=== PATIENT | female | born 1980 | race Caucasian/White ===

== ENCOUNTER 2021-08-25 14:26 | Observation (INO) | payer MEDICARE, MEDICAID, SELFPAY ==
[2021-08-25 14:41] VITALS: BMI 33.5
[2021-08-25 15:13] VITALS: BP 110/80; PULSE 88; RESP 16; TEMP 37.1; O2SAT 98
[2021-08-25] MEDS: nicotine 2 mg Gum BUCCAL ×2 (20:25→22:38)
[2021-08-25] MEDS: CLONazepam 1 mg Tablet PO (21:14)
[2021-08-25] MEDS: quetiapine 25 mg Tablet 50 MG PO (21:14)
[2021-08-25 22:00] VITALS: RESP 18
[2021-08-26] MEDS: acetaminophen 325 mg Tablet 650 MG PO (00:57)
[2021-08-26 06:00] VITALS: RESP 18
--- NOTE | 2021-08-26 08:22 | P.NPUHP_ITS ---
Providers/Chief Complaint Admitting Physician: Gonzalo Romero MD Chief Complaint: psychosis HPI NPU History of Present Illness Marianela Rosenberg is a 40 year old female admitted from the emergency department at [facility] with the following behavioral health assessment. Behavioral health assessment at [facility]: Narrative summary: Precipitating events within the past 72 hours leading to presentation to the hospital: Patient is a 23-year-old female who presented to [facility] emergency department via EMS with a chief complaint of being pissed that I was discharged and treated like shit by the [employer] and I am going to slit my wrist if I do not get some meds. Patient reports she was discharged from the facility and [employer] 3 days ago and they kept her meds from home, stabilized her and kicked her out without any prescriptions for medications. Patient endorses a current diagnosis of depression, merle, psychosis and anxiety including low mood, decreased energy, poor self-care, crying, elevated mood, auditory hallucinations, and panic attacks. Patient reports having migraine due to her TBI and her brain is swelling and going to pop out of her head. Patient reports when she was discharged she felt normal, however she did not have prescriptions for medications she was on and did not want to remain on the lithium and stopped taking it. Initially patient states that she was going to cut her wrist if she did not get her medication. Then states that she was not suicidal and did not have a plan. When asked about the statement to cut her risk patient stated I wish I had the guts to do it, maybe I could walk out into traffic. I attempted suicide 1 time and was in a coma for weeks. God will not let me . Patient is requesting inpatient admission to get on medication. Case consultation with psychiatric advance nurse practitioner with the recommendation of admitting to behavioral health. Emergency department attending at concurs with the plan. When I attempted to interview her she said she only wanted out of this place. She said that she just threatened suicide yesterday in order to get medication. I tried to ask her about symptoms and she became belligerent. She is said [facility] . She would not cooperate with the evaluation. She denied depression. She denied that she had any suicidal ideation recently. She said that she moved here from [place] about 4 months ago. She has been trying to get an outpatient psychiatric visit for the last 4 months but she says that she still does not have one. Meds NPU Home Medications Medication Instructions Recorded Confirmed Last Taken Type clonazepam 1 mg PO TID 08/25/21 08/25/21 08/24/21 History lithium carbonate 300 mg PO DAILY 08/25/21 08/25/21 08/24/21 History quetiapine 50 mg PO BEDTIME 08/25/21 08/25/21 08/24/21 History Allergies Allergy/AdvReac Type Severity Reaction Status Date / Time adhesive tape Allergy Unknown Verified 08/25/21 15:08 amoxicillin Allergy Unknown Verified 08/25/21 15:08 gabapentin Allergy Unknown Verified 08/25/21 15:08 Penicillins Allergy Unknown Verified 08/25/21 15:08 Sulfa (Sulfonamide Allergy Unknown Verified 08/25/21 15:08 Antibiotics) tizanidine Allergy Unknown Verified 08/25/21 15:08 PFS NPU PFSH: Medical History (Updated 08/26/21 @ 08:42 by Gonzalo Romero MD) Anxiety Migraines TBI (traumatic brain injury) Family History (Updated 08/25/21 @ 17:47 by Kaushik Mix RN) Sister Bipolar disorder Seizures Anxiety Ovarian cancer Mother Ovarian cancer Hypertension Sister No problems noted. Father Anxiety Depression Mental Status Exam MSE Comments: This is a 40-year-old overweight female who was found in bed. She initially ask why I was bothering her. She was not cooperative with the evaluation. She is dressed in hospital scrubs and has not done her grooming for the day. psychomotor activity is normal. Speech is at a regular rate and rhythm, normal volume, good articulation, not pressured. Alert, she would not answer orientation questions. Attention and concentration is apparently normal. Memory is intact Mood: Not depressed, anxiety is 112. Affect is irritable moderately dysphoric. Thought process is logical and goal-directed. Thought content: Denies auditory and visual hallucinations. No delusions or paranoia are noted. No current suicidal ideation, and no homicidal ideation. Fund of knowledge is not assessed. Insight and judgment appear to be poor l. Impulse control is poor. Vitals/I&O/Wt Last Vital Signs Temp 98.7 F 08/25/21 15:13 Pulse 88 08/25/21 15:13 Resp 18 08/26/21 06:00 BP 110/80 08/25/21 15:13 Pulse Ox 98 08/25/21 15:13 Weight last 48 hrs Weight 85.9 kg Weight 85.729 kg A&P Additional A&P Information Plan: 1. We will discharge to home. 2. Continue every 15 minute checks for safety while she is here 3. Encourage individual, group and milieu therapies while she is here 4. Encourage sober living treatment after discharge at the highest level of care to which she is willing to commit. 5. We will monitor for safety for himself in the community prior to discharge. Involuntary Hold Information 96 Hour Hold: 96 Hour Involuntary Admission: No Attestations NPU Medical Necessity Statement*: Inpatient hospitalization is medically necessary and the clinically appropriate intervention at this time. Likely length of stay 1 days Coding Level of Care Code Acute Nail Making Machine Tender for Matilde Langston
--- NOTE | 2021-08-26 08:25 | PC.OT ---
OT NPU EVALUATION ATTEMPTED. PATIENT STATES, NO, I JUST WANT TO GO HOME. I DON'T WANT GROUP TREATMENTS. NURSING INFORMED OF PATIENT REFUSAL TO PARTICIPATE IN OT EVALUATION.
[2021-08-26] MEDS: CLONazepam 1 mg Tablet PO (08:40)
[2021-08-26] MEDS: lithium carbonate ER 300 mg Tablet PO (08:40)
[2021-08-26] MEDS: nicotine 2 mg Gum BUCCAL ×2 (08:41→12:18)
--- NOTE | 2021-08-26 08:44 | P.NPUDS_ITS ---
Reason for Visit Reason for Visit: psychosis Brief History: History of Present Illness Marianela Rosenberg is a 40 year old female admitted from the emergency department at [facility] with the following behavioral health assessment. Behavioral health assessment at [facility]: Narrative summary: Precipitating events within the past 72 hours leading to presentation to the hospital: Patient is a 23-year-old female who presented to [facility] emergency department via EMS with a chief complaint of being pissed that I was discharged and treated like shit by the [employer] and I am going to slit my wrist if I do not get some meds. Patient reports she was discharged from the facility and [employer] 3 days ago and they kept her meds from home, stabilized her and kicked her out without any prescriptions for medications. Patient endorses a current diagnosis of depression, merle, psychosis and anxiety including low mood, decreased energy, poor self-care, crying, elevated mood, auditory hallucinations, and panic attacks. Patient reports having migraine due to her TBI and her brain is swelling and going to pop out of her head. Patient reports when she was discharged she felt normal, however she did not have prescriptions for medications she was on and did not want to remain on the lithium and stopped taking it. Initially patient states that she was going to cut her wrist if she did not get her medication. Then states that she was not suicidal and did not have a plan. When asked about the statement to cut her risk patient stated I wish I had the guts to do it, maybe I could walk out into traffic. I attempted suicide 1 time and was in a coma for weeks. God will not let me . Patient is requesting inpatient admission to get on medication. Case consultation with psychiatric advance nurse practitioner with the recommendation of admitting to behavioral health. Emergency department attending at concurs with the plan. When I attempted to interview her she said she only wanted out of this place. She said that she just threatened suicide yesterday in order to get medication. I tried to ask her about symptoms and she became belligerent. She is said I just want out of this damn building . [facility] She denied depression. She denied that she had any suicidal ideation recently. She said that she moved here from [place] about 4 months ago. She has been trying to get an outpatient psychiatric visit for the last 4 months but she says that she still does not have one. Hospital Course Hospital Course She was continued on her home medications except for Adderall which she has not been prescribed for the last 3 months. She insisted on leaving the next day and was not cooperative with evaluation. She was able to contract for safety outside hospital prior to discharge. During the hospitalization, patient had routine laboratory studies which were within normal limits except for few outliers. Additionally there was a general medical evaluation which was also within normal limits and revealed no new acute processes. Discharge Summary: At the time of discharge, lethality was denied and there was no psychosis. Mood and anxiety were well managed. Patient endorsed a plan to follow-up with the aftercare recommendations of the treatment team. Patient was evaluated and deemed to be absent credible lethality, and had achieved the maximum benefit from an inpatient hospitalization, so was discharged. Involuntary Hold Information 96 Hour Hold: 96 Hour Involuntary Admission: No Mental Status Exam MSE Comments: This is a 40-year-old overweight female who was found in bed. She initially ask why I was bothering her. She was not cooperative with the evaluation. She is dressed in hospital scrubs and has not done her grooming for the day. psychomotor activity is normal. Speech is at a regular rate and rhythm, normal volume, good articulation, not pressured. Alert, she would not answer orientation questions. Attention and concentration is apparently normal. Memory is intact Mood: Not depressed, anxiety is 112. Affect is irritable moderately dysphoric. Thought process is logical and goal-directed. Thought content: Denies auditory and visual hallucinations. No delusions or paranoia are noted. No current suicidal ideation, and no homicidal ideation. Fund of knowledge is not assessed. Insight and judgment appear to be poor l. Impulse control is poor. Discharge Data Vitals: Last Vital Signs Temp 98.7 F 08/25/21 15:13 Pulse 88 08/25/21 15:13 Resp 18 08/26/21 06:00 BP 110/80 08/25/21 15:13 Pulse Ox 98 08/25/21 15:13 Discharge Plan Discharge Patient Disposition: Home Condition: Stable Prescriptions: Continued clonazepam 1 mg Tablet 1 mg PO TID RF: 0 lithium carbonate 300 mg Tablet Extended Release 300 mg PO DAILY RF: 0 quetiapine 50 mg Tablet 50 mg PO BEDTIME RF: 0 Discharge Orders: Discharge Order (Routine); Ordered 11/23/21 Ordered By: Gonzalo Romero Discharge Diet: Regular Discharge Activity: Resume usual activity Patient Instructions: Opioid Safety Discharge Attestations NPU Time Spent in Discharge Care*: less than 30 min Specific Discharge Activities: Specific discharge activities: educating patient, discussing with blasting machine operator/social workers/dc planners, documenting/other paperwork and evaluating patient/reviewing data Coding Level of Care Code Acute Chg DC note
--- NOTE | 2021-08-26 12:25 | NPU.GN ---
[facility] Group Topic:roup Topic: What are we Thankful For General Mood of Group: Marianela did not attend group she reported to this magnetic tape typewriter operator that she was going home.
[2021-08-26 12:51] VITALS: RESP 18
== END 2021-08-26 13:30 | disposition home or self-care (01) ==
PROVIDERS: Admitting Provider Psychiatry & Neurology Psychiatry; Visit Provider Psychiatry & Neurology Psychiatry
DX: F32.A Depression, unspecified (principal); R45.851 Suicidal ideations; F41.9 Anxiety disorder, unspecified; G43.909 Migraine, unspecified, not intractable, without status migrainosus; Z87.820 Personal history of traumatic brain injury
CPT/HCPCS: G0378; G0379